=== PATIENT | male | born 1970 | race American Indian/Alaskan Native ===

== ENCOUNTER 2016-07-28 10:46 | Emergency (ER) | payer SELFPAY ==
[2016-07-28 10:56] VITALS: BP 133/91
[2016-07-28] MEDS ORDERED: MOTRIN PO ONE (11:27)
[2016-07-28] MEDS ORDERED: XYLOCAINE 1% 20 mL INFILTRATI ONE (11:27)
--- NOTE | 2016-07-29 11:20 | Emergency Department Report ---
Entered by JOHNIE DODSON, acting as scribe for KATERINA GORDON NP. - General Chief complaint: Skin/Abscess/Foreign Body Stated complaint: BUMP ON NECK Source: patient Mode of arrival: Ambulatory Limitations: No Limitations - History of Present Illness Initial comments: 46 year old male with a PMHx of diverticulosis presents to the ED c/o an abscess on the left posterior neck that began 3 weeks ago. Patient rates his pain a 9 out 10 in severity, which worsens with rotating his neck and sleeping. He states that he tried warm compressors with no relief. Associated symptoms include erythema to affected area and left posterior neck pain, but denies fever , chills, purulent drainage, numbness, and nausea. Patient denies headache or stiff neck. Notes tobacco use daily. NKDA. BENAVIDES complaint: abscess/boil (left posterior neck) Onset/Timin -: week(s) Location: neck (left posterior) Severity: moderate Severity scale (0 -10): 9 Quality: aching, constant Consistency: constant Improves with: immobilization Worsens with: palpation, movement, other (sleeping) Associated symptoms: other (left posterior neck pain and erythema) Treatments Prior to Arrival: other - Related Data Previous Rx's Medication Instructions Recorded Last Taken Type Bacitracin [Bacitracin Ophth] 1 applicatio OP BID #1 tube 02/12/16 Unknown Rx HYDROcodone/APAP 5-325 [Warren 1 each PO Q6HR PRN #15 tablet 02/12/16 Unknown Rx 5/325] Ibuprofen [Motrin] 800 mg PO Q8HR PRN #30 tablet 02/12/16 Unknown Rx Cephalexin [Keflex] 500 mg PO Q12HR #10 cap 07/28/16 Unknown Rx traMADol [Ultram 50 MG tab] 50 mg PO Q6HR PRN #15 tablet 07/28/16 Unknown Rx Allergies Allergy/AdvReac Type Severity Reaction Status Date / Time No Known Allergies Allergy Verified 10/28/13 13:49 Abscess Boil HPI - HPI Chief Complaint: Skin/Abscess/Foreign Body Stated Complaint: BUMP ON NECK Duration: >1 Week (3 weeks) Location: Neck (left posterior) Severity: Moderate History: Yes Pain (left posterior neck), No Fever, No Purulent Drainage, No Numbness, No Foreign Body, No Previous History, No Insect Bite Home Medications: Previous Rx's Medication Instructions Recorded Last Taken Type Bacitracin [Bacitracin Ophth] 1 applicatio OP BID #1 tube 02/12/16 Unknown Rx HYDROcodone/APAP 5-325 [Warren 1 each PO Q6HR PRN #15 tablet 02/12/16 Unknown Rx 5/325] Ibuprofen [Motrin] 800 mg PO Q8HR PRN #30 tablet 02/12/16 Unknown Rx Cephalexin [Keflex] 500 mg PO Q12HR #10 cap 07/28/16 Unknown Rx traMADol [Ultram 50 MG tab] 50 mg PO Q6HR PRN #15 tablet 07/28/16 Unknown Rx Allergies/Adverse Reactions: Allergies Allergy/AdvReac Type Severity Reaction Status Date / Time No Known Allergies Allergy Verified 10/28/13 13:49 ED Review of Systems ROS: Please see HPI. Comment: All other systems reviewed and negative Constitutional: denies: chills, fever Eyes: denies: eye pain, eye discharge, vision change ENT: denies: ear pain, throat pain Respiratory: denies: cough, shortness of breath, wheezing Cardiovascular: denies: chest pain, palpitations Endocrine: no symptoms reported Gastrointestinal: denies: nausea Genitourinary: denies: urgency, dysuria Musculoskeletal: other (left posterior neck pain) Skin: other (abscess with induration on left posterior neck, denies purulent drainage) Neurological: denies: numbness Psychiatric: as per HPI Hematological/Lymphatic: denies: easy bleeding, easy bruising ED Past Medical Hx - Past Medical History Previous Medical History?: Yes Additional medical history: Diverticulosis - Surgical History Past Surgical History?: No - Social History Smoking Status: Current Every Day Smoker Substance Use Type: Alcohol, Marijuana - Medications Home Medications: Home Medications Medication Instructions Recorded Confirmed Last Taken Type Bacitracin [Bacitracin Ophth] 1 applicatio OP BID #1 tube 02/12/16 Unknown Rx HYDROcodone/APAP 5-325 [Warren 1 each PO Q6HR PRN #15 tablet 02/12/16 Unknown Rx 5/325] Ibuprofen [Motrin] 800 mg PO Q8HR PRN #30 tablet 02/12/16 Unknown Rx Cephalexin [Keflex] 500 mg PO Q12HR #10 cap 07/28/16 Unknown Rx traMADol [Ultram 50 MG tab] 50 mg PO Q6HR PRN #15 tablet 07/28/16 Unknown Rx ED Physical Exam - General Limitations: No Limitations General appearance: alert, in no apparent distress - Head Head exam: Present: atraumatic, normocephalic - Eye Eye exam: Present: normal appearance, EOMI - ENT ENT exam: Present: normal exam, mucous membranes moist - Neck Neck exam: Present: tenderness (left posterior neck), full ROM (limited neck rotation due to pain), other (4 cm abscess/folliculitis with induration on left posterior neck ). Absent: lymphadenopathy - Respiratory Respiratory exam: Present: normal lung sounds bilaterally. Absent: respiratory distress - Cardiovascular Cardiovascular Exam: Present: regular rate, normal rhythm - Extremities Exam Extremities exam: Present: normal inspection, full ROM - Back Exam Back exam: Present: normal inspection, full ROM - Neurological Exam Neurological exam: Present: alert, oriented X3 - Psychiatric Psychiatric exam: Present: normal affect, normal mood - Skin Skin exam: Present: warm, dry, intact, erythema (left posterior neck around affected area), other (4 cm abscess/folliculitis with induration on left posterior neck ) ED Course Vital Signs 07/28/16 07/28/16 10:54 11:58 Temperature 98.4 F Pulse Rate 81 Respiratory 20 18 Rate Blood Pressure 133/91 O2 Sat by Pulse 100 Oximetry - Reevaluation(s) Reevaluation #1: 07/28/16 12:35 After prescribed ibuprofen. Patient level proved and is 6 out of 10. Reevaluation #2: 07/28/16 12:37 At this time the patient does not seem toxic or ill appearance. Patient did well after I&D. States 0 out of 10 as pain. No signs of any complication noted at this time. Reevaluation #3: 07/28/16 13:30 Called patient back to ER to take his Keflex. Patient left his antibiotic prescription medication in the room. Reevaluation #4: 07/28/16 15:13 1406: Voice mail for patient to call back so the [facility] for Keflex prescription. 1443: Spoke to patient and patient agreed to give me the number of his pharmacist. Patient also states that he understands that it is very important to take medication. 1506: Spoke to patient and gave me the pharmacy number [phone]. 1511: That the voicemail for [facility] pharmacy 1512: Spoke to patient and instructed patient that Keeveline was called in, and if there are any issues to please contact me back and so the [facility] in ER. - I & D Left Posterior Neck Type of Procedure: Complex Site: left posterior neck Blade Size: 11 I & D Procedure: betadine prep (cleaned abscess with 3% PCMX with normal saline before betadine prep), sterile drapes applied, sterile dressing applied, gauze wick placed (Iodoform 1/4 packing) Progress: Under sterile procedure, the cleaned the area with PCMX. I wiped PCMX with sterile gauze. I then used Betadine to prep the area. I used a 25-gauge 5/8 to inject 1% lidocaine. At this time the patient has no signs of any distress. I used 11 blade and made an incision approximately 2 cm to the area. At this time there was purulent drainage. I used normal saline to irrigate the wound. I used iodoform 1/4 dressing to packing. Use 4 x 4 sterile dressing with tape. Patient tolerated well. No signs of distress or any complications noted. ED Medical Decision Making - Medical Decision Making Ed course: This is a 46-year-old male that presents with Folliculitis/abscess 1- I instructed patient to keep area dry and clean. 2- Prescribed a ibuprofen. Patient tolerated well. Stated pain level decreased and feels much better. 3- please see procedure info for I&D. 4- instructed the patient to follow with primary care doctor in 3-5 days. 5- instructed the patient to report back to emergency room in 3 days. 6-I instructed the patient to keep area dry and clean. 7- patient does not appear toxic or ill at the time of discharge. No questions. Patient is aware of the discharge plan. ED Disposition Clinical Impression: Folliculitis, Abscess, Cellulitis Disposition: DISCHARGED TO HOME OR SELFCARE Is pt being admited?: No Does the pt Need Aspirin: No Condition: Stable Instructions: Abscess Incision and Drainage (ED), Folliculitis (ED), Abscess ( ED) Additional Instructions: Please see a primary care doctor in 3-5 days. Please report back to emergency room department in 3 days. Keep area dry and clean. Do not operate any vehicle or make any decisions while taking Ultram. If symptoms such as fever, chills, swelling, headache, stiff neck, please report back to emergency room. Prescriptions: Cephalexin [Keflex] 500 mg PO Q12HR #10 cap traMADol [Ultram 50 MG tab] 50 mg PO Q6HR PRN #15 tablet PRN Reason: Pain Referrals: PRIMARY CARE,MD [Primary Care Provider] - 3-5 Days [facility] [Outside] - 3-[address] [facility] [Outside] - 3-5 Days Forms: Work/School Release Form(ED) This documentation as recorded by the IVORY henning JASMINE,accurately reflects the service I personally performed and the decisions made by ,KATERINA GORDON, LEONORA.
== END 2016-07-28 13:00 | disposition home or self-care (01) ==
LOC: ED 10:46
DX: L73.9 Follicular disorder, unspecified (principal); L02.11 Cutaneous abscess of neck; F17.200 Nicotine dependence, unspecified, uncomplicated; F12.90 Cannabis use, unspecified, uncomplicated